=== PATIENT | female | born 1950 | race Asian ===

== ENCOUNTER 2018-03-11 10:55 | Emergency (ER) | payer MEDICAID, OTHER ==
[~2018-03-11] VITALS: Ht 157.5 cm; Wt 50.7 kg
[2018-03-11 10:58] VITALS: BP 162/79; PULSE 105; RESP 18; TEMP 97.9; O2SAT 95
--- NOTE | 2018-03-11 11:36 | PD ---
HPI Chief Complaint: Respiratory Symptoms Time Seen by Provider: 11:12 Travel History International Travel<30 days: No Contact w/Intl Traveler<30days: No Traveled to known affect area: No History of Present Illness HPI 67yo F with PMH of ovarian cancer s/p hysterectomy and chemotherapy 3 years ago , DM presents to the ED with c/o sob for 3 days. Said she has been getting ascites and has been getting it drain every few months. Last paracentesis is in [facility]. Pt is from the [facility] and came here 1 month ago. Denies any fever, cough, chest pain, n/v, abdominal pain, focal weakness or numbness. Said she does not feel abdominal pain but does feel pressure. States her sob feels like what happens when her abdomen becomes distended. PFSH Past Medical History Heart Rhythm Problems: Yes (arrhythmia) Chemotherapy: Yes (R/T OVARIAN CA) Chest Pain: Yes Diabetes: Yes Patient Takes Glucophage: Yes Respiratory: Yes Influenza Vaccination: Yes ?: Not Past Surgical History Hysterectomy: Yes (2012) Social History Alcohol Use: No Tobacco Use: No Substance Use: No Allergies-Medications (Allergen,Severity, Reaction): Coded Allergies: No Known Allergies (Unverified , 03/11/18) Reported Meds & Prescriptions Reported Meds & Active Scripts Active Reported [trimetazidine] 35 Mg PO BID Multi Vitamin Daily (Multiple Vitamin) 1 Tab Tab Glipizide 10 Mg Tab 10 Mg PO BIDAC Take 30 minutes before a meal Furosemide 20 Mg Tab 20 Mg PO TUFR Review of Systems Except as stated in HPI: all other systems reviewed are Neg Physical Exam Narrative GENERAL: 67yo F not in distress. SKIN: Focused skin assessment warm/dry. HEAD: Atraumatic. Normocephalic. EYES: Pupils equal and round. No scleral icterus. No injection or drainage. ENT: No nasal bleeding or discharge. Mucous membranes pink and moist. NECK: Trachea midline. No JVD. CARDIOVASCULAR: Regular rate and rhythm. No murmur appreciated. RESPIRATORY: No accessory muscle use. Clear to auscultation. Breath sounds equal bilaterally. GASTROINTESTINAL: Abdomen softly distended. Non tender to palpation. No rebound tenderness or guarding. MUSCULOSKELETAL: No obvious deformities. No clubbing. No cyanosis. No edema. NEUROLOGICAL: Awake and alert. No obvious cranial nerve deficits. Motor grossly within normal limits. Normal speech. PSYCHIATRIC: Appropriate mood and affect; insight and judgment normal. Data Data Last Documented VS Vital Signs Date Time Temp Pulse Resp B/P (MAP) Pulse Ox O2 Delivery O2 Flow Rate FiO2 03/11/18 20:15 97.9 88 16 145/71 (95) 96 03/11/18 19:45 Room Air Orders Orders Complete Blood Count With Diff (03/11/18 11:30) Basic Metabolic Panel (Bmp) (03/11/18 11:30) B-Type Natriuretic Peptide (03/11/18 11:30) Act Partial Throm Time (Ptt) (03/11/18 11:30) Prothrombin Time / Inr (Pt) (03/11/18 11:30) Troponin I (03/11/18 11:30) Electrocardiogram (03/11/18 11:30) Chest, Single Ap (03/11/18 11:30) Us Guided Abd Paracentesis (03/11/18 ) Ed Discharge Order (03/11/18 20:12) Labs Laboratory Tests Test 03/11/18 11:40 03/11/18 12:19 03/11/18 13:43 B-Type Natriuretic Peptide 14 PG/ML White Blood Count 5.2 TH/MM3 Red Blood Count 3.80 MIL/MM3 Hemoglobin 10.9 GM/DL Hematocrit 33.2 % Mean Corpuscular Volume 87.3 FL Mean Corpuscular Hemoglobin 28.6 PG Mean Corpuscular Hemoglobin Concent 32.8 % Red Cell Distribution Width 14.4 % Platelet Count 279 TH/MM3 Mean Platelet Volume 7.8 FL Neutrophils (%) (Auto) 60.9 % Lymphocytes (%) (Auto) 26.2 % Monocytes (%) (Auto) 9.8 % Eosinophils (%) (Auto) 1.8 % Basophils (%) (Auto) 1.3 % Neutrophils # (Auto) 3.1 TH/MM3 Lymphocytes # (Auto) 1.4 TH/MM3 Monocytes # (Auto) 0.5 TH/MM3 Eosinophils # (Auto) 0.1 TH/MM3 Basophils # (Auto) 0.1 TH/MM3 CBC Comment DIFF FINAL Differential Comment Prothrombin Time 10.0 SEC Prothromb Time International Ratio 1.0 RATIO Activated Partial Thromboplast Time 24.8 SEC Blood Urea Nitrogen 9 MG/DL Creatinine 0.88 MG/DL Random Glucose 266 MG/DL Calcium Level 8.6 MG/DL Sodium Level 136 MEQ/L Potassium Level 4.0 MEQ/L Chloride Level 97 MEQ/L Carbon Dioxide Level 34.9 MEQ/L Anion Gap 4 MEQ/L Estimat Glomerular Filtration Rate 64 ML/MIN Troponin I LESS THAN 0.02 NG/ML MDM Medical Decision Making Medical Screen Exam Complete: Yes Emergency Medical Condition: Yes Interpretation(s) EKG: NSR 98bpm. Normal axis. No ST segment elevation or depression. Differential Diagnosis SOB secondary to abdominal distension from ascites vs. pneumonia vs. CHF vs. pleural effusion vs. ACS Narrative Course 67yo F here with c/o sob for 3 days. Pt is well appearing and saturated at 98% on RA. Pt does have a distended abdomen but it is soft and nontender. Labs reviewed, no leukocytosis. H/H 10.9/33.2, no prior to compare. Platelet normal. Troponin negative. BNP normal. Coagulations normal. CXR negative. Pt is well appearing but does not have outpatient resources since she is here from [facility]. Ordered US guided therapeutic paracentesis for IR. Pt went to US guided paracentesis by IR. Pt instructed to obtain primary care physician since she is now going to be staying here. Diagnosis Primary Impression: Ascites Qualified Codes: R18.8 - Other ascites Patient Instructions: General Instructions Departure Forms: Tests/Procedures Additional Instructions: Please follow up with your primary care physician in 2-3 days. Return to the ED if symptoms worsen. Med/Other Pt SpecificInfo: No Change to Meds Disposition: 01 DISCHARGE HOME Condition: Stable Marcelle Pulido DO March 11, 2018 11:36
[2018-03-11] MEDS ORDERED: FURO20TA PO (11:39)
[2018-03-11] MEDS ORDERED: MULT1TAB46 (11:39)
[2018-03-11] MEDS ORDERED: trimetazidine PO (11:39)
[2018-03-11] MEDS ORDERED: GLIP10TA6 PO (11:39)
--- NOTE | 2018-03-11 12:00 | RADRPT ---
EXAM DATE: 03/11/2018 11:55 AM EDT AGE/SEX: 67 years / Female INDICATIONS: Shortness of breath and upper abdominal discomfort. CLINICAL DATA: This is the patient's initial encounter. Patient reports that signs and symptoms have been present for 3 days and indicates a pain score of 4/10. MEDICAL/SURGICAL HISTORY: Hypertension. None. COMPARISON: No prior [facility] exams available for comparison. FINDINGS: A single AP view of the chest demonstrates the lungs to be symmetrically aerated without evidence of mass, infiltrate or effusion. The cardiomediastinal contours are unremarkable. Osseous structures a re intact. CONCLUSION: No acute pulmonary infiltrates. Electronically signed by: Amanuel Newton MD 03/11/2018 11:58 AM EDT
[2018-03-11 12:46] LABS: AUTOMATED NEUTROPHIL # 3.1 TH/MM3 (1.8-7.7); BASOPHIL # 0.1 TH/MM3 (0-0.2); BASOPHIL % 1.3 % (0.0-2.0); EOSINOPHIL # 0.1 TH/MM3 (0-0.4); EOSINOPHIL % 1.8 % (0.0-4.0); HEMATOCRIT 33.2 % (35.0-46.0); HEMOGLOBIN 10.9 GM/DL (11.6-15.3); LYMPH % 26.2 % (9.0-44.0); LYMPHOCYTE # 1.4 TH/MM3 (1.0-4.8); MEAN CELL VOLUME 87.3 FL (80.0-100.0); MEAN CORPUSCULAR HEMOGLOBIN 28.6 PG (27.0-34.0); MEAN CORPUSCULAR HGB CONC 32.8 % (32.0-36.0); MEAN PLATELET VOLUME 7.8 FL (7.0-11.0); MONO % 9.8 % (0.0-8.0); MONOCYTE # 0.5 TH/MM3 (0-0.9); NEUT % 60.9 % (16.0-70.0); PLATELET COUNT 279 TH/MM3 (150-450); RED CELL DISTRIBUTION WIDTH 14.4 % (11.6-17.2); WHITE BLOOD COUNT 5.2 TH/MM3 (4.0-11.0)
[2018-03-11 13:06] LABS: TROPONIN I LESS THAN 0.02 NG/ML (0.02-0.05)
[2018-03-11 14:37] LABS: BICARBONATE 34.9 MEQ/L (21.0-32.0); BLOOD UREA NITROGEN 9 MG/DL (7-18); CALCIUM 8.6 MG/DL (8.5-10.1); CHLORIDE 97 MEQ/L (98-107); CREATININE 0.88 MG/DL (0.50-1.00); GLOMERULAR FILTRATION RATE 64 ML/MIN (>89); GLUCOSE,RANDOM 266 MG/DL (74-106); SODIUM (NA) 136 MEQ/L (136-145)
[2018-03-11 19:35] VITALS: BP 144/68; PULSE 86; RESP 15; TEMP 98.2; O2SAT 96
[2018-03-11 19:45] VITALS: BP 145/72; PULSE 91; RESP 14; O2SAT 96
[2018-03-11 20:15] VITALS: BP 145/71; TEMP 97.9
--- NOTE | 2018-03-12 12:48 | EKG ---
Date Performed: 03/11/2018 Time Performed: 11:54:43 PTAGE: 67 years EKG: Sinus rhythm NONSPECIFIC T-WAVE ABNORMALITY BORDERLINE ECG NO PREVIOUS TRACING DOCTOR: Arthur Villela Interpretating Date/Time 03/12/2018 12:46:50
[2018-03-12] MEDS ORDERED: LIDOCAINE HCL 1% PF 30 ML VIAL ONE (17:13)
--- NOTE | 2018-03-17 17:51 | RADRPT ---
EXAM DATE: 03/11/2018 7:13 PM EDT AGE/SEX: 67 years / Female INDICATIONS: Ascites. CLINICAL DATA: This is the patient's initial encounter. Patient reports that signs and symptoms have been present for 2 months and indicates a pain score of 2/10. MEDICAL/SURGICAL HISTORY: Carcinoma, ovarian. Arrhythmia. Diabetes. Hysterectomy. Chemotherap y. COMPARISON: No prior exams available for comparison. No external comparison. FLUID: Total volume of 6,100 cc of . blood tinged fluid was removed. Fluid was discarded. Paracentesis was t herapeutic only. . . TECHNIQUE: Ultrasound guidance for abdominal paracentesis. Paracentesis. The risks, benefits, and alternatives to ultrasound guided paracentesis were explained to the patient in detail including the risk of bleeding and infection. Written and verbal informed consent was obt ained. With the patient on the ultrasound table, ultrasound imaging was used to select the most appropriate approach for paracentesis. Overlying skin was prepped and draped in the usual sterile fashion and wi th a local anesthetic, a dermatotomy was made with an 11 blade scalpel. A 6 [place] [id number] ca theter was introduced into the peritoneal cavity and fluid was collected. Post procedure scanning reveals no hematoma or other complication. The patient tolerated the procedu re well and left the ultrasound suite in stable condition. CONCLUSION: 1. Uncomplicated paracentesis. Electronically signed by: Levar Ji MD 03/17/2018 5:50 PM EDT
== END 2018-03-11 20:25 | disposition home or self-care (01) ==
LOC: NEPC 10:55
DX: R18.8 Other ascites (principal); E11.9 Type 2 diabetes mellitus without complications; Z79.84 Long term (current) use of oral hypoglycemic drugs; Z85.43 Personal history of malignant neoplasm of ovary
CPT/HCPCS: 49083; 71045; 80048; 83880; 84484; 85025; 85610; 85730; 93005; 99285; C1729

== ENCOUNTER 2018-04-04 08:53 | Inpatient (IN) | payer MEDICAID ==
[~2018-04-04] VITALS: Ht 157.5 cm; Wt 50.1 kg
[2018-04-04] VITALS (7 sets, daily range): BP systolic 100–166; BP diastolic 45–73; PULSE 78–108; RESP 16–20; TEMP 97.8–99.1; O2SAT 95–100
[~2018-04-04 08:53] MED LIST: FURO20TA PO; GLIP10TA6 PO; MULT1TAB46; trimetazidine PO
--- NOTE | 2018-04-04 10:00 | PD ---
HPI Chief Complaint: GI Complaint Time Seen by Provider: 09:30 Travel History International Travel<30 days: No Contact w/Intl Traveler<30days: No Traveled to known affect area: No History of Present Illness HPI The patient was seen and examined in the presence of the nurse. This patient moved here from the [facility] recently. She has history of ovarian cancer. She got some chemotherapy in the [facility] but it does not sound like she ever followed up to determine the result of that. She has recurrent abdominal ascites and needs recurrent paracentesis. She was seen here in the ER 3 weeks ago and got paracentesis. She returns with the same issue. She is got abdominal bloating at times it makes her short of breath. He has no chest pain or productive cough or fever or presyncopal symptoms. Symptom severity is moderate. No alleviating factors. Symptoms exacerbated by recurrent ascites. PFSH Past Medical History Heart Rhythm Problems: Yes (arrhythmia) Cardiovascular Problems: Yes Chemotherapy: Yes (R/T OVARIAN CA) Chest Pain: Yes Diabetes: Yes Respiratory: Yes Past Surgical History Hysterectomy: Yes (2012) Social History Alcohol Use: No Tobacco Use: No Substance Use: No Allergies-Medications (Allergen,Severity, Reaction): Coded Allergies: No Known Allergies (Unverified , 03/11/18) Reported Meds & Prescriptions Reported Meds & Active Scripts Active Reported [trimetazidine] 35 Mg PO BID Multi Vitamin Daily (Multiple Vitamin) 1 Tab Tab Glipizide 10 Mg Tab 10 Mg PO BIDAC Take 30 minutes before a meal Furosemide 20 Mg Tab 20 Mg PO TUFR Review of Systems General / Constitutional: No: Fever Eyes: No: Visual changes HENT: No: Headaches Cardiovascular: No: Chest Pain or Discomfort Respiratory: Positive: Shortness of Breath Gastrointestinal: Positive: Vomiting Genitourinary: No: Dysuria Musculoskeletal: No: Pain Skin: No Rash Neurologic: No: Weakness Psychiatric: No: Depression Endocrine: No: Polydipsia Hematologic/Lymphatic: No: Easy Bruising Physical Exam Narrative GENERAL: Well-nourished, well-developed patient in no apparent distress. SKIN: Focused skin assessment reveals no rash and nodules. Skin is Warm and dry. HEAD: Atraumatic. Normocephalic. EYES: Pupils equal and round. No scleral icterus. No injection or drainage. ENT: No nasal bleeding or discharge. Mucous membranes pink and moist. NECK: Trachea midline. No JVD. CARDIOVASCULAR: Regular rate and rhythm. No murmur appreciated. RESPIRATORY: No accessory muscle use. Clear to auscultation. Breath sounds equal bilaterally. GASTROINTESTINAL: Abdomen soft, non-tender, mild distention consistent with ascites. No tenseness. Hepatic and splenic margins not palpable. MUSCULOSKELETAL: No obvious deformities. No clubbing. No cyanosis. No edema. NEUROLOGICAL: Awake and alert. No obvious cranial nerve deficits. Motor grossly within normal limits. Normal speech. PSYCHIATRIC: Appropriate mood and affect; insight and judgment normal. Data Data Last Documented VS Vital Signs Date Time Temp Pulse Resp B/P (MAP) Pulse Ox O2 Delivery O2 Flow Rate FiO2 04/04/18 12:57 100 17 160/66 (97) 100 Room Air 04/04/18 09:02 97.8 Orders Orders Complete Blood Count With Diff (04/04/18 09:41) Prothrombin Time / Inr (Pt) (04/04/18 09:41) Act Partial Throm Time (Ptt) (04/04/18 09:41) Comprehensive Metabolic Panel (04/04/18 09:41) Chest, Single Ap (04/04/18 ) Iv Access Insert/Monitor (04/04/18 09:41) Ct Thorax/ Chest W Iv Contrast (04/04/18 ) Ct Abd/Pel W Iv Contrast(Rout) (04/04/18 ) Iohexol 350 Inj (Omnipaque 350 Inj) (04/04/18 11:40) Labs Laboratory Tests Test 04/04/18 09:45 White Blood Count 6.3 TH/MM3 Red Blood Count 4.48 MIL/MM3 Hemoglobin 12.3 GM/DL Hematocrit 38.1 % Mean Corpuscular Volume 85.0 FL Mean Corpuscular Hemoglobin 27.4 PG Mean Corpuscular Hemoglobin Concent 32.3 % Red Cell Distribution Width 14.9 % Platelet Count 489 TH/MM3 Mean Platelet Volume 7.8 FL Neutrophils (%) (Auto) 72.2 % Lymphocytes (%) (Auto) 18.2 % Monocytes (%) (Auto) 8.1 % Eosinophils (%) (Auto) 0.5 % Basophils (%) (Auto) 1.0 % Neutrophils # (Auto) 4.5 TH/MM3 Lymphocytes # (Auto) 1.1 TH/MM3 Monocytes # (Auto) 0.5 TH/MM3 Eosinophils # (Auto) 0.0 TH/MM3 Basophils # (Auto) 0.1 TH/MM3 CBC Comment DIFF FINAL Differential Comment Prothrombin Time 9.8 SEC Prothromb Time International Ratio 1.0 RATIO Activated Partial Thromboplast Time 25.0 SEC Blood Urea Nitrogen 11 MG/DL Creatinine 0.74 MG/DL Random Glucose 166 MG/DL Total Protein 8.4 GM/DL Albumin 2.7 GM/DL Calcium Level 9.1 MG/DL Alkaline Phosphatase 155 U/L Aspartate Amino Transf (AST/SGOT) 26 U/L Alanine Aminotransferase (ALT/SGPT) 18 U/L Total Bilirubin 0.4 MG/DL Sodium Level 135 MEQ/L Potassium Level 3.5 MEQ/L Chloride Level 94 MEQ/L Carbon Dioxide Level 30.3 MEQ/L Anion Gap 11 MEQ/L Estimat Glomerular Filtration Rate 78 ML/MIN MDM Medical Decision Making Medical Screen Exam Complete: Yes Emergency Medical Condition: Yes Medical Record Reviewed: Yes Differential Diagnosis Ovarian cancer, recurrent ascites, anasarca Narrative Course I have reviewed the patient's electronic medical record. Reviewed her visit from 3 weeks ago Since her last visit the patient has established with and seen a primary physician in [place] IV placed and labs sent I reviewed her chest x-ray which shows possible mass lesion and CT recommended Lab studies are reviewed CT of chest abdomen and pelvis was done for detailed evaluation. She has massive ascites compressing her distal esophagus causing food to build up She has omental caking and calcified pelvic spread She has suspected spread to mediastinal nodes Patient is new to the area getting no oncology evaluation She will require hospitalization given the extent of the ascites causing esophageal compression I reviewed with the hospitalist will admit Diagnosis Primary Impression: Ascites, malignant Additional Impressions: Acute obstruction of esophagus Ovarian malignant neoplasm Qualified Codes: C56.9 - Malignant neoplasm of unspecified ovary Admitting Information Admitting Physician Requests: it David Villanueva MD Apr 04, 2018 10:00
[2018-04-04 10:12] LABS: AUTOMATED NEUTROPHIL # 4.5 TH/MM3 (1.8-7.7); BASOPHIL # 0.1 TH/MM3 (0-0.2); EOSINOPHIL % 0.5 % (0.0-4.0); HEMATOCRIT 38.1 % (35.0-46.0); HEMOGLOBIN 12.3 GM/DL (11.6-15.3); LYMPH % 18.2 % (9.0-44.0); LYMPHOCYTE # 1.1 TH/MM3 (1.0-4.8); MEAN CORPUSCULAR HEMOGLOBIN 27.4 PG (27.0-34.0); MEAN CORPUSCULAR HGB CONC 32.3 % (32.0-36.0); MEAN PLATELET VOLUME 7.8 FL (7.0-11.0); MONO % 8.1 % (0.0-8.0); MONOCYTE # 0.5 TH/MM3 (0-0.9); NEUT % 72.2 % (16.0-70.0); PLATELET COUNT 489 TH/MM3 (150-450); RED BLOOD COUNT 4.48 MIL/MM3 (4.00-5.30); RED CELL DISTRIBUTION WIDTH 14.9 % (11.6-17.2); WHITE BLOOD COUNT 6.3 TH/MM3 (4.0-11.0)
[2018-04-04 10:18] LABS: PROTHROMBIN TIME - PATIENT 9.8 SEC (9.8-11.6)
--- NOTE | 2018-04-04 10:22 | RADRPT ---
EXAM DATE: 04/04/2018 10:15 AM EDT AGE/SEX: 67 years / Female INDICATIONS: Short of breath, lower chest/ upper abdomen pain. CLINICAL DATA: This is the patient's initial encounter. Patient reports that signs and symptoms have been present for 1 week and indicates a pain score of 8/10. MEDICAL/SURGICAL HISTORY: . arrhythmia. None. COMPARISON: [facility] [place], CHEST SINGLE AP, 03/11/2018. . FINDINGS: Portable AP view of the chest demonstrates a normal size cardiac silhouette. There is a suspected mas slike opacity overlying the heart and left lower lung zone. Based on the appearance is likely retroca rdiac. An EKG lead overlies this area of the chest. No pleural effusion or pneumothorax is identified . The bones and soft tissues demonstrate no acute abnormality otherwise. CONCLUSION: There is a retrocardiac appearing opacity/mass that appears different than on the a prior examination . EKG lead overlies this area partially obscuring this finding. A hiatal hernia could have this appea ronal but I cannot exclude a mediastinal or lung mass given the appearance. Suggest chest CT for furt her evaluation. Electronically signed by: Greg Barba MD 04/04/2018 10:20 AM EDT
[2018-04-04 10:40] LABS: ALBUMIN 2.7 GM/DL (3.4-5.0); ALT (GPT) 18 U/L (10-53); AST (GOT) 26 U/L (15-37); BICARBONATE 30.3 MEQ/L (21.0-32.0); BLOOD UREA NITROGEN 11 MG/DL (7-18); CALCIUM 9.1 MG/DL (8.5-10.1); CHLORIDE 94 MEQ/L (98-107); CREATININE 0.74 MG/DL (0.50-1.00); GLOMERULAR FILTRATION RATE 78 ML/MIN (>89); GLUCOSE,RANDOM 166 MG/DL (74-106); SODIUM (NA) 135 MEQ/L (136-145)
[2018-04-04 10:43] LABS: ALKALINE PHOSPHATASE 155 U/L (45-117); TOTAL BILIRUBIN ADULT 0.4 MG/DL (0.2-1.0); TOTAL PROTEIN 8.4 GM/DL (6.4-8.2)
[2018-04-04] MEDS ORDERED: IOHEXOL 350 MG/ML 10 ML VIAL (for RAD DIAG) IVCONTRAST ONE (11:40)
--- NOTE | 2018-04-04 12:08 | RADRPT ---
EXAM DATE: 04/04/2018 11:41 AM EDT AGE/SEX: 67 years / Female INDICATIONS: Abdomen pressure with difficulty swallowing. CLINICAL DATA: This is the patient's initial encounter. Patient reports that signs and symptoms have been present for 1 day and indicates a pain score of 2/10. MEDICAL/SURGICAL HISTORY: Carcinoma, ovarian. Diabetes. Hysterectomy. RADIATION DOSE: 5.1 CTDI (mGy) ; Combined studies COMPARISON: [facility] [place], CT ABDOMEN & PELVIS W CONTRAST, 04/04/2018. . TECHNIQUE: Multiple contiguous axial images were obtained through the chest during bolus infusion of 96 ml Omnipaque 350 (iohexol) nonionic water-soluble contrast as a cumulative dose for multiple exa ms. Images were obtained in suspended respiration using multiple row detector helical technique. U sing automated exposure control and adjustment of the mA and/or kV according to patient size, radiati on dose was kept as low as reasonably achievable to obtain optimal diagnostic quality images. DICOM format image data is available electronically for review and comparison. FINDINGS: Lungs: No consolidation or pneumothorax. There is architectural distortion with tubular/linear high density structure in the right upper lobe measuring approximately 2.3 x 0.9 cm. There is adjacent br onchiectasis. Mild nodularity is present in the right upper lobe on image 10 measuring up to 5 mm. In the right middle lobe there is mild bronchiectasis and nodularity. Compressive atelectasis is presen t in the left lower lobe adjacent to the large hiatal hernia and posterior mediastinal fluid. Mediastinum: The heart and great vessels demonstrate no acute abnormality. There are enlarged media stinal lymph nodes with a 12 x 10 mm right paratracheal lymph node and a 1.8 x 1.7 cm precarinal lymp h node. Coronary artery calcification is present. There is a large hiatal hernia extending into the p osterior mediastinum with posterior mediastinal fluid extending from the abdomen. The esophagus is di lated and contains a fluid and material. Pleurae: No pleural effusion or pleural thickening. Axillae: No lymphadenopathy. Musculoskeletal: The bones and soft tissues demonstrate no acute abnormality. Other: Please refer to abdomen and pelvis CT report for description of the subdiaphragmatic findings . CONCLUSION: 1. There is a large hiatal hernia with fluid in the posterior mediastinum that has extended from the peritoneal cavity. The hiatal hernia and fluid presumably are related to the dilated esophagus conta ining fluid material. Suspect there is likely some degree of external compression on the distal esoph esha near the GE junction from the hernia and fluid. 2. The lungs demonstrated architectural distortion in the right upper lobe with bronchiectasis. Ther e is also mild bronchiectasis and nodularity in the right middle lobe. The appearance favors a chroni c infectious or inflammatory process but consider attention to this at follow-up imaging. 3. There is mediastinal lymphadenopathy, highly suspicious for metastatic disease related to the pat ient's ovarian cancer. 4. Please refer to abdomen and pelvis CT report for description of the subdiaphragmatic findings. Electronically signed by: Greg Barba MD 04/04/2018 12:07 PM EDT
--- NOTE | 2018-04-04 12:09 | RADRPT ---
EXAM DATE: 04/04/2018 11:41 AM EDT AGE/SEX: 67 years / Female INDICATIONS: Abdomen pressure with difficulty swallowing. CLINICAL DATA: This is the patient's initial encounter. Patient reports that signs and symptoms have been present for 1 day and indicates a pain score of 2/10. MEDICAL/SURGICAL HISTORY: Carcinoma, ovarian. Hysterectomy. ORAL CONTRAST: No oral contrast ingested. RADIATION DOSE: 5.1 CTDI (mGy) ; Combined studies COMPARISON: No prior exams available for comparison. TECHNIQUE: Multiple contiguous axial images were obtained through the abdomen and pelvis following b olus infusion of 96 ml Omnipaque 350 (iohexol) nonionic water-soluble contrast as a cumulative dose for multiple exams. No oral contrast ingested. Using automated exposure control and adjustment of t he mA and/or kV according to patient size, radiation dose was kept as low as reasonably achievable to obtain optimal diagnostic quality images. DICOM format image data is available electronically for r eview and comparison. FINDINGS: Lower Lungs: The visualized lower lungs are clear. Coronary artery calcifications are present. Liver: The liver has a homogeneous density without space-occupying lesion. There is no dilation of th e biliary tree. Spleen: Homogeneous density without enlargement. Pancreas: Unremarkable without mass or calcification. Kidneys: Normal in size and shape. No evidence of mass or hydronephrosis. Adrenal Glands: Unremarkable. Aorta: The aorta and proximal iliac vessels are grossly unremarkable without aneurysmal dilation. Bowel/Mesentery: There is evidence of a hiatal hernia with apparent food in the distal esophagus. Th e distal esophagus is surrounded by pockets of ascitic fluid and may be narrowed distally. There is m assive amounts of ascitic fluid throughout the abdomen and pelvis. There is abnormal enhancement and mild nodularity along the peritoneum consistent with metastatic disease. There are apparent calcified mesenteric masses along the anterior and inferior pelvis. Abdominal Wall: Intact. Retroperitoneum: No evidence of adenopathy in the retrocrural, para-aortic, or deep pelvic regions. Bladder: Not well visualized or evaluated due to the surrounding ascitic fluid and calcified mesente stormy metastases. Bladder appears decompressed. Reproductive Organs: No abnormal masses or calcifications seen. Inguinal: The inguinal region is unremarkable without evidence of adenopathy. Bony Structures: Osteopenia and degenerative change with no distinct destructive or lytic lesion. CONCLUSION: 1. Massive ascitic fluid with apparent calcified peritoneal metastases along the anterior and inferi or pelvis. There are additional omental metastasis. 2. Evidence of a hiatal hernia with apparent food in the distal esophagus. The distal esophagus is s urrounded by pockets of ascitic fluid and may be narrowed distally. Electronically signed by: Mario Aponte MD 04/04/2018 12:08 PM EDT
[2018-04-04] MEDS ORDERED: MAGNESIUM HYDROXIDE SUSP 30 ML CUP PO PRN (13:30)
[2018-04-04] MEDS ORDERED: LACTULOSE SYRUP 20 GM/30 ML CUP PO PRN (13:30)
[2018-04-04] MEDS ORDERED: BISACODYL 10 MG SUPP RECTAL PRN (13:30)
[2018-04-04] MEDS ORDERED: ONDANSETRON ODT 4 MG TAB SL PRN (13:30)
[2018-04-04] MEDS ORDERED: SENNOSIDES 8.6 MG TAB PO PRN (13:30)
[2018-04-04] MEDS ORDERED: NALOXONE HCL 0.4 MG/ML AMP IV PUSH PRN (13:30)
[2018-04-04] MEDS ORDERED: SODIUM CHLORIDE 0.9% FLUSH 10 ML FLUSH IV FLUSH PRN (13:30)
--- NOTE | 2018-04-04 13:34 | HHI.HP ---
[facility] No Primary Care Physician Admission Diagnosis malignant ascites, esophageal obstruction,ovarian cancer Diagnoses: Chief Complaint: Abdominal pain. Poor appetite Travel History International Travel<30 Days: No Contact w/Intl Traveler <30 Da: No Traveled to Known Affected Are: No History of Present Illness 67-year-old female with a reported history of ovarian cancer who has previously been living in the [facility] presented to the emergency room with recurrent abdominal pain and ascites. The patient was seen with her daughter at bedside who served as an patternmaker metal bench per the patient's request. Apparently she was diagnosed with ovarian cancer about 4 years ago in the [facility]. She underwent total hysterectomy and received 6 doses of chemotherapy treatment. However she continues to have recurrent ascites requiring frequent paracentesis. She is here visiting her family but she continues to decline with persistent ascites, very poor appetite and overall decline. She was seen here in the emergency room about 3 weeks ago and underwent therapeutic paracentesis. The fluid reaccumulated again with associated abdominal pain. She has not been able to establish with an oncologist here. Review of Systems Constitutional: COMPLAINS OF: Weight loss, Change in appetite, DENIES: Fever Gastrointestinal: COMPLAINS OF: Abdominal pain, Nausea Past Family Social History Past Medical History Ovarian cancer Diabetes Hypertension ? Abnormal heart rhythm. Past Surgical History Total hysterectomy Reported Medications Reported Meds & Active Scripts Active Reported [trimetazidine] 35 Mg PO BID Multi Vitamin Daily (Multiple Vitamin) 1 Tab Tab Glipizide 10 Mg Tab 10 Mg PO BIDAC Take 30 minutes before a meal Furosemide 20 Mg Tab 20 Mg PO TUFR Allergies: Coded Allergies: No Known Allergies (Unverified , 03/11/18) Family History No immediate family history of cancer. Social History Never used tobacco, alcohol, or illicit drugs. Physical Exam Vital Signs Vital Signs Date Time Temp Pulse Resp B/P (MAP) Pulse Ox O2 Delivery O2 Flow Rate FiO2 04/04/18 12:57 100 17 160/66 (97) 100 Room Air 04/04/18 09:52 18 04/04/18 09:02 97.8 108 20 166/71 (102) 97 Physical Exam GENERAL: Cachectic appearing female. SKIN: No rashes, ecchymoses or lesions. Cool and dry. HEAD: Atraumatic. Normocephalic. No temporal or scalp tenderness. EYES: Pupils equal round and reactive. Extraocular motions intact. No scleral icterus. No injection or drainage. ENT: Nose without bleeding, purulent drainage or septal hematoma. Throat without erythema, tonsillar hypertrophy or exudate. Uvula midline. Airway patent. NECK: Trachea midline. No JVD or lymphadenopathy. Supple, nontender, no meningeal signs. CARDIOVASCULAR: Normal rate but rhythm is irregular. No significant murmur. RESPIRATORY: Diminished breath sounds at the bases bilaterally otherwise clear to auscultation. GASTROINTESTINAL: Abdomen is markedly distended, tender to palpation, apparent large ascites. MUSCULOSKELETAL: Extremities without clubbing, cyanosis, or edema. NEUROLOGICAL: Awake and alert. Cranial nerves II through XII intact. Motor and sensory grossly within normal limits. Five out of 5 muscle strength in all muscle groups. Normal speech. Laboratory Laboratory Tests Test 04/04/18 09:45 White Blood Count 6.3 Red Blood Count 4.48 Hemoglobin 12.3 Hematocrit 38.1 Mean Corpuscular Volume 85.0 Mean Corpuscular Hemoglobin 27.4 Mean Corpuscular Hemoglobin Concent 32.3 Red Cell Distribution Width 14.9 Platelet Count 489 Mean Platelet Volume 7.8 Neutrophils (%) (Auto) 72.2 Lymphocytes (%) (Auto) 18.2 Monocytes (%) (Auto) 8.1 Eosinophils (%) (Auto) 0.5 Basophils (%) (Auto) 1.0 Neutrophils # (Auto) 4.5 Lymphocytes # (Auto) 1.1 Monocytes # (Auto) 0.5 Eosinophils # (Auto) 0.0 Basophils # (Auto) 0.1 CBC Comment DIFF FINAL Differential Comment Prothrombin Time 9.8 Prothromb Time International Ratio 1.0 Activated Partial Thromboplast Time 25.0 Blood Urea Nitrogen 11 Creatinine 0.74 Random Glucose 166 Total Protein 8.4 Albumin 2.7 Calcium Level 9.1 Alkaline Phosphatase 155 Aspartate Amino Transf (AST/SGOT) 26 Alanine Aminotransferase (ALT/SGPT) 18 Total Bilirubin 0.4 Sodium Level 135 Potassium Level 3.5 Chloride Level 94 Carbon Dioxide Level 30.3 Anion Gap 11 Estimat Glomerular Filtration Rate 78 Result Diagram: 04/04/18 0945 04/04/18 0945 Imaging Last Impressions Chest X-Ray 04/04/18 0000 Signed Impressions: CONCLUSION: There is a retrocardiac appearing opacity/mass that appears different than on t he a prior examination. EKG lead overlies this area partially obscuring this fi nding. A hiatal hernia could have this appearance but I cannot exclude a medias tinal or lung mass given the appearance. Suggest chest CT for further evaluatio n. Chest CT 04/04/18 0000 Signed Impressions: CONCLUSION: 1. There is a large hiatal hernia with fluid in the posterior mediastinum that has extended from the peritoneal cavity. The hiatal hernia and fluid presumabl y are related to the dilated esophagus containing fluid material. Suspect there is likely some degree of external compression on the distal esophagus near the GE junction from the hernia and fluid. 2. The lungs demonstrated architectural distortion in the right upper lobe wit h bronchiectasis. There is also mild bronchiectasis and nodularity in the right middle lobe. The appearance favors a chronic infectious or inflammatory proces s but consider attention to this at follow-up imaging. 3. There is mediastinal lymphadenopathy, highly suspicious for metastatic dise ase related to the patient's ovarian cancer. 4. Please refer to abdomen and pelvis CT report for description of the subdiap hragmatic findings. Abdomen/Pelvis CT 04/04/18 0000 Signed Impressions: CONCLUSION: 1. Massive ascitic fluid with apparent calcified peritoneal metastases along t he anterior and inferior pelvis. There are additional omental metastasis. 2. Evidence of a hiatal hernia with apparent food in the distal esophagus. The distal esophagus is surrounded by pockets of ascitic fluid and may be narrowed distally. Caprini VTE Risk Assessment Caprini VTE Risk Assessment: Mod/High Risk (score >= 2) Caprini Risk Assessment Model Point Value = 1 Point Value = 2 Point Value = 3 Point Value = 5 Age 41-60 Minor surgery BMI > 25 kg/m2 Swollen legs Varicose veins or History of unexplained or recurrent spontaneous Oral contraceptives or hormone replacement Sepsis (< 1 month) Serious lung disease, including pneumonia (< 1 month) Abnormal pulmonary function Acute myocardial infarction Congestive heart failure (< 1 month) History of inflammatory bowel disease Medical patient at bed rest Age 61-74 Arthroscopic surgery Major open surgery (> 45 min) Laparoscopic surgery (> 45 min) Malignancy Confined to bed (> 72 hours) Immobilizing plaster cast Central venous access Age >= 75 History of VTE Family history of VTE Factor V Leiden Prothrombin [id number] Lupus anticoagulant Anticardiolipin antibodies Elevated serum homocysteine Heparin-induced thrombocytopenia Other congenital or acquired thrombophilia Stroke (< 1 month) Elective arthroplasty Hip, pelvis, or leg fracture Acute spinal cord injury (< 1 month) Prophylaxis Regimen Total Risk Factor Score Risk Level Prophylaxis Regimen 0-1 Low Early ambulation 2 Moderate Order ONE of the following: *Sequential Compression Device (SCD) *Heparin 5000 units SQ BID 3-4 Higher Order ONE of the following medications: *Heparin 5000 units SQ TID *Enoxaparin/Lovenox 40 mg SQ daily (WT < 150 kg, CrCl > 30 mL/min) *Enoxaparin/Lovenox 30 mg SQ daily (WT < 150 kg, CrCl > 10-29 mL/min) *Enoxaparin/Lovenox 30 mg SQ BID (WT < 150 kg, CrCl > 30 mL/min) AND/OR *Sequential Compression Device (SCD) 5 or more Highest Order ONE of the following medications: *Heparin 5000 units SQ TID (Preferred with Epidurals) *Enoxaparin/Lovenox 40 mg SQ daily (WT < 150 kg, CrCl > 30 mL/min) *Enoxaparin/Lovenox 30 mg SQ daily (WT < 150 kg, CrCl > 10-29 mL/min) *Enoxaparin/Lovenox 30 mg SQ BID (WT < 150 kg, CrCl > 30 mL/min) AND *Sequential Compression Device (SCD) Assessment and Plan Problem List: (1) Ovarian malignant neoplasm ICD Code: C56.9 - Malignant neoplasm of unspecified ovary Status: Acute Plan: The patient was previously living in the [facility] where she received chemotherapy treatment about 4 years ago. However she has been having recurrent ascites. This has been getting worse. Abdominal CT shows massive ascitic fluid with apparent calcified peritoneal metastases along the anterior and inferior pelvis. There are additional omental metastasis. There is also mediastinal lymphadenopathy concerning for metastasis. -Order paracentesis. Will also ask for cytology. -Consult [employer] oncology. Appreciate assistance. -Pain control as needed. -I asked the patient's daughter who is an employee here to bring the patient's records from the [facility] (2) Ascites, malignant ICD Code: R18.0 - Malignant ascites Status: Acute Plan: Paracentesis as above. Fluid studies and cytology ordered. (3) Acute obstruction of esophagus ICD Code: K22.2 - Esophageal obstruction Status: Acute Plan: Probably due to large volume ascites. We will see how she does after paracentesis. If she continues to have issues with eating, will get GI to evaluate. (4) Diabetes ICD Code: E11.9 - Type 2 diabetes mellitus without complications Plan: Sliding scale insulin with Accu-Cheks. Oral intake is uncertain at this time. Hold glipizide. (5) Hypertension ICD Code: I10 - Essential (primary) hypertension Plan: Continue Lasix for now. Follow blood pressure. Discussed Condition With Dr. Villanueva Physician Certification 2 Midnight Certification Type: Admission for Inpatient Services Order for Inpatient Services The services are ordered in accordance with Medicare regulations or non- Medicare payer requirements, as applicable. In the case of services not specified as inpatient-only, they are appropriately provided as inpatient services in accordance with the 2-midnight benchmark. Estimated LOS (days): 5 days is the estimated time the patient will need to remain in the hospital, assuming treatment plan goals are met and no additional complications. Post-Hospital Plan: Not yet determined Problem Qualifiers (1) Ovarian malignant neoplasm: Qualified Codes: C56.9 - Malignant neoplasm of unspecified ovary Hung Katz MD Apr 04, 2018 13:33
[2018-04-04] MEDS ORDERED: GLUCAGON 1 MG/ML VIAL OTHER PRN (13:45)
[2018-04-04] MEDS ORDERED: DEXTROSE 50% IN WATER 50 ML VIAL(D50) IV PUSH PRN (13:45)
[2018-04-04] MEDS ORDERED: LIDOCAINE HCL 1% PF 30 ML VIAL ONE (15:50)
--- NOTE | 2018-04-04 16:05 | PD.RAD ---
Post US Procedure Prog Note Pre Procedure Diagnosis: (1) Ovarian malignant neoplasm (2) Ascites, malignant Post Procedure Diagnosis: (1) Ascites, malignant (2) Ovarian malignant neoplasm Procedure Date: Apr 04, 2018 Supervising Radiologist: Greg Barba Estimated blood loss: none. Anesthesia: Local Plan of Activity Patient to Unit: Other Patient Condition: Good See PACS Report for procedural detail/treatment Drainage Procedure Procedure 1 Imaging Guidance: Ultrasound Side: Right Procedure Type: Paracentesis Drainage: Suction Fluid Removal (CCs): 7200 Fluid Description: Clear, Red Plan no complications. return to ED. Greg Barba MD Apr 04, 2018 16:05
--- NOTE | 2018-04-04 16:06 | RADRPT ---
EXAM DATE: 04/04/2018 3:48 PM EDT AGE/SEX: 67 years / Female INDICATIONS: Ascites. CLINICAL DATA: This is the patient's initial encounter. Patient reports that signs and symptoms have been present for 1 day and indicates a pain score of 0/10. MEDICAL/SURGICAL HISTORY: . Diabetic. Ovarian cancer. HTN. Hysterectomy. COMPARISON: [facility], US GUIDED ABD PARACENTESIS, 03/11/2018. . FLUID: Total volume of 7200 cc of clear, red fluid was removed. Fluid was sent to lab for ordered studies. . . TECHNIQUE: Ultrasound guidance for abdominal paracentesis. Paracentesis. The risks, benefits, and alternatives to ultrasound guided paracentesis were explained to the patient in detail including the risk of bleeding and infection. Written and verbal informed consent was obt ained. With the patient on the ultrasound table, ultrasound imaging was used to select the most appropriate approach for paracentesis. Overlying skin was prepped and draped in the usual sterile fashion and wi th a local anesthetic, a dermatotomy was made with an 11 blade scalpel. A 6 [place] [id number] ca theter was introduced into the peritoneal cavity and fluid was collected. The patient tolerated the procedure well and left the ultrasound suite in stable condition. FINDINGS: Post procedure imaging demonstrates complete evacuation of the pleural fluid in the right lower quadr ant. CONCLUSION: Uncomplicated paracentesis with removal of 7.2 L of fluid. Electronically signed by: Greg Barba MD 04/04/2018 4:05 PM EDT
[2018-04-04 16:55] LABS: TOTAL PROTEIN 8.5 GM/DL (6.4-8.2)
[2018-04-04 16:56] LABS: TOTAL PROTEIN,PERITONEAL FLUID 5.8 GM/DL
[2018-04-04] MEDS: INSULIN ASPART SUPPLEMENTAL SCALE SQ SCH ×2 (17:00→20:40)
[2018-04-04 17:31] LABS: PERITONEAL HISTIOCYTES 5 %; PERITONEAL LYMPHS 61 %; PERITONEAL MONOS 26 %; PERITONEAL POLYS(SEGS) 3 %
[2018-04-04 17:32] LABS: PERITONEAL RBC 31588 /MM3 (0-0)
[2018-04-04] MEDS: SODIUM CHLORIDE 0.9% FLUSH 10 ML FLUSH IV FLUSH SCH (20:42)
[2018-04-05] VITALS (7 sets, daily range): BP systolic 102–131; BP diastolic 48–59; PULSE 92–99; RESP 15–18; TEMP 97.3–99.4; O2SAT 92–97
[2018-04-05 07:10] LABS: AUTOMATED NEUTROPHIL # 3.7 TH/MM3 (1.8-7.7); BASOPHIL % 0.8 % (0.0-2.0); EOSINOPHIL # 0.1 TH/MM3 (0-0.4); EOSINOPHIL % 1.3 % (0.0-4.0); HEMATOCRIT 32.5 % (35.0-46.0); HEMOGLOBIN 10.5 GM/DL (11.6-15.3); LYMPH % 21.3 % (9.0-44.0); LYMPHOCYTE # 1.3 TH/MM3 (1.0-4.8); MEAN CELL VOLUME 84.5 FL (80.0-100.0); MEAN CORPUSCULAR HEMOGLOBIN 27.3 PG (27.0-34.0); MEAN CORPUSCULAR HGB CONC 32.3 % (32.0-36.0); MEAN PLATELET VOLUME 7.8 FL (7.0-11.0); MONO % 13.3 % (0.0-8.0); MONOCYTE # 0.8 TH/MM3 (0-0.9); NEUT % 63.3 % (16.0-70.0); PLATELET COUNT 382 TH/MM3 (150-450); RED BLOOD COUNT 3.85 MIL/MM3 (4.00-5.30); RED CELL DISTRIBUTION WIDTH 14.6 % (11.6-17.2); WHITE BLOOD COUNT 5.9 TH/MM3 (4.0-11.0)
--- NOTE | 2018-04-05 07:32 | EKG ---
Date Performed: 04/04/2018 Time Performed: 18:25:33 PTAGE: 67 years EKG: SINUS TACHYCARDIA NONSPECIFIC T-WAVE ABNORMALITY ABNORMAL RHYTHM ECG PREVIOUS TRACING : 03/11/2018 11.54 DOCTOR: Moises Winston Interpretating Date/Time 04/05/2018 07:29:36
[2018-04-05 07:54] LABS: BICARBONATE 31.5 MEQ/L (21.0-32.0); CALCIUM 7.8 MG/DL (8.5-10.1); CREATININE 0.47 MG/DL (0.50-1.00)
[2018-04-05] MEDS: INSULIN ASPART SUPPLEMENTAL SCALE SQ SCH ×4 (08:00→21:00)
--- NOTE | 2018-04-05 09:10 | PD.CONS ---
History of Present Illness Service storekeeper helper/onc Consult Requested By Dr. Katz Reason for Consult PMH: ovarian cancer ascites Primary Care Physician No Primary Care Physician Diagnoses: (1) Ovarian malignant neoplasm History of Present Illness This is a 67 year old female who presented to [facility] for evaluation of ascites. She has a PMH of ovarian cancer treated in the [facility] about 4 years ago. Patient does not speak much Upper Sorbian so I spoke with her daughter on the phone. Her daughter reports that she was getting ascites drained in the [facility] but since she arrived [facility] the [facility] a month ago it seems that the ascites is building up quicker, she was in ER about 3 weeks ago and had ascites drained. Overall patient states she feels much better after the paracentesis. I explained to her daughter that cytology is still pending but the imaging shows implants that is consistent with recurrent disease. If she was interesting in treatment, Dr. Almaraz would most likely give Taxol and Carboplatin. Her daughter confirmed that Ms. Christianson got 6 cycles of chemotherapy after her diagnosis and asked how many treatment she would need? I explained that at least 6-8 cycles based on response, I also reviewed the potential side effects of the chemotherapy. Ms. Christianson's daughter expressed concern if her mother would be able to tolerate the chemo given her frail state. I stated that is a concern, as she will have to be physically strong enough. I suggested talking with Palliative Care, and she wants to talk with her brother and mother today to decide if she wants to move forward with treatment. Review of Systems ROS Limitations: Language Barrier Constitutional: COMPLAINS OF: Weight loss Gastrointestinal: COMPLAINS OF: Abdominal pain, Difficulty Swallowing, Anorexia Except as stated in HPI: all other systems reviewed are Neg Past Family Social History Allergies: Coded Allergies: No Known Allergies (Unverified , 03/11/18) Past Medical History ovarian cancer diabetes hypertension abnormal heart rhythm (?) Past Surgical History hysterectomy Reported Medications per EMR Active Ordered Medications Current Medications Iohexol (Omnipaque 350 Inj) 96 ml STK-MED ONCE IVCONTRAST Last administered on 04/04/18at 11:40; Start 04/04/18 at 11:40; Stop 04/04/18 at 11:41; Status DC Sodium Chloride (NS Flush) 2 ml UNSCH PRN IV FLUSH FLUSH AFTER USING IV ACCESS ; Start 04/04/18 at 13:30 Sodium Chloride (NS Flush) 2 ml BID IV FLUSH Last administered on 04/04/18at 20: 42; Start 04/04/18 at 21:00 Ondansetron HCl (Zofran Odt) 4 mg Q6H PRN SL NAUSEA OR VOMITING; Start at 13:30 Naloxone HCl (Narcan Inj) 0.4 mg UNSCH PRN IV PUSH SEE LABEL COMMENTS; Start at 13:30 Magnesium Hydroxide (Milk Of Magnesia Liq) 30 ml Q12H PRN PO Mild constipation ; Start 04/04/18 at 13:30 Sennosides (Senokot) 17.2 mg Q12H PRN PO Moderate constipation; Start 04/04/18 at 13:30 Bisacodyl (Dulcolax Supp) 10 mg DAILY PRN RECTAL SEVERE CONSITIPATION; Start at 13:30 Lactulose (Lactulose Liq) 30 ml DAILY PRN PO SEVERE CONSITIPATION; Start at 13:30 Dextrose (D50w (Vial) Inj) 50 ml UNSCH PRN IV PUSH HYPOGLYCEMIA-SEE COMMENTS; Start 04/04/18 at 13:45 Glucagon (Glucagon Inj) 1 mg UNSCH PRN OTHER HYPOGLYCEMIA-SEE COMMENTS; Start 04/04/18 at 13:45 Insulin Aspart (NovoLOG SUPPLEMENTAL SCALE) 1 ACHS SLIDING SCALE SQ Last administered on 04/04/18at 20:40; Start 04/04/18 at 17:00 Furosemide (Lasix) 20 mg DAILY PO ; Start 04/05/18 at 09:00 Potassium Chloride (KCl) 10 meq DAILY PO ; Start 04/05/18 at 09:00 Lidocaine HCl (Xylocaine-Mpf 1% Inj) 30 ml STK-MED ONCE .ROUTE ; Start 04/04/18 at 15:50; Stop 04/04/18 at 15:51; Status DC Family History no PMH cancer Social History living with daughter in states denies tobacco denies alcohol Physical Exam Vital Signs Vital Signs Date Time Temp Pulse Resp B/P (MAP) Pulse Ox O2 Delivery O2 Flow Rate FiO2 04/05/18 04:00 97.9 93 16 109/54 (72) 95 04/05/18 00:00 98.1 92 16 102/48 (66) 97 04/04/18 20:00 98.0 99 16 100/49 (66) 96 04/04/18 16:10 106 16 134/59 (84) 95 04/04/18 16:00 98.0 107 16 122/45 (70) 99 04/04/18 15:52 99.1 102 16 123/54 (77) 97 04/04/18 14:46 98.5 78 16 132/73 (92) 98 04/04/18 12:57 100 17 160/66 (97) 100 Room Air 04/04/18 09:52 18 04/04/18 09:02 97.8 108 20 166/71 (102) 97 Physical Exam GENERAL: frail and thin, in no apparent distress. SKIN: No rashes, ecchymoses or lesions. Cool and dry. HEAD: Atraumatic. Normocephalic. No temporal or scalp tenderness. EYES: Pupils equal round and reactive. Extraocular motions intact. No scleral icterus. NECK: Trachea midline. No JVD or lymphadenopathy. CARDIOVASCULAR: Regular rate and rhythm without murmurs, gallops, or rubs. RESPIRATORY: Clear to auscultation. Breath sounds equal bilaterally. No wheezes , rales, or rhonchi. GASTROINTESTINAL: Abdomen soft, non-tender, nondistended. No hepato-splenomegaly , or palpable masses. No guarding. MUSCULOSKELETAL: Extremities without clubbing, cyanosis, or edema. NEUROLOGICAL: Awake and alert. Laboratory Laboratory Tests Test 04/04/18 09:45 04/04/18 15:00 04/04/18 20:01 04/05/18 06:21 White Blood Count 6.3 5.9 Red Blood Count 4.48 3.85 Hemoglobin 12.3 10.5 Hematocrit 38.1 32.5 Mean Corpuscular Volume 85.0 84.5 Mean Corpuscular Hemoglobin 27.4 27.3 Mean Corpuscular Hemoglobin Concent 32.3 32.3 Red Cell Distribution Width 14.9 14.6 Platelet Count 489 382 Mean Platelet Volume 7.8 7.8 Neutrophils (%) (Auto) 72.2 63.3 Lymphocytes (%) (Auto) 18.2 21.3 Monocytes (%) (Auto) 8.1 13.3 Eosinophils (%) (Auto) 0.5 1.3 Basophils (%) (Auto) 1.0 0.8 Neutrophils # (Auto) 4.5 3.7 Lymphocytes # (Auto) 1.1 1.3 Monocytes # (Auto) 0.5 0.8 Eosinophils # (Auto) 0.0 0.1 Basophils # (Auto) 0.1 0.0 CBC Comment DIFF FINAL DIFF FINAL Differential Comment Prothrombin Time 9.8 Prothromb Time International Ratio 1.0 Activated Partial Thromboplast Time 25.0 Blood Urea Nitrogen 11 8 Creatinine 0.74 0.47 Random Glucose 166 94 Total Protein 8.4 Albumin 2.7 Calcium Level 9.1 7.8 Alkaline Phosphatase 155 Aspartate Amino Transf (AST/SGOT) 26 Alanine Aminotransferase (ALT/SGPT) 18 Total Bilirubin 0.4 Sodium Level 135 141 Potassium Level 3.5 3.2 Chloride Level 94 102 Carbon Dioxide Level 30.3 31.5 Anion Gap 11 8 Estimat Glomerular Filtration Rate 78 131 Lactate Dehydrogenase 317 Peritoneal Fluid WBC 1344 Peritoneal Fluid RBC 32152 Peritoneal Fluid Neutrophils 3 Peritoneal Fluid Lymphocytes 61 Peritoneal Fluid Monocytes 26 Peritoneal Fluid Histiocytes 5 Peritoneal Fluid Other Cells 5 Peritoneal Fluid Comment Peritoneal Fluid Total Protein 5.8 Peritoneal Fluid Albumin 2.1 Peritoneal Fluid LDH 1685 Peritoneal Fluid Glucose 73 CA 125 Antigen 105.5 Result Diagram: 04/05/1821 04/05/18620 Imaging Last Impressions Cyst Biopsy Asp-Paracentesis US 04/04/18 0000 Signed Impressions: CONCLUSION: Uncomplicated paracentesis with removal of 7.2 L of fluid. Chest X-Ray 04/04/18 Signed Impressions: CONCLUSION: There is a retrocardiac appearing opacity/mass that appears different than on t he a prior examination. EKG lead overlies this area partially obscuring this fi nding. A hiatal hernia could have this appearance but I cannot exclude a medias tinal or lung mass given the appearance. Suggest chest CT for further evaluatio n. Chest CT 04/04/18 0000 Signed Impressions: CONCLUSION: 1. There is a large hiatal hernia with fluid in the posterior mediastinum that has extended from the peritoneal cavity. The hiatal hernia and fluid presumabl y are related to the dilated esophagus containing fluid material. Suspect there is likely some degree of external compression on the distal esophagus near the GE junction from the hernia and fluid. 2. The lungs demonstrated architectural distortion in the right upper lobe wit h bronchiectasis. There is also mild bronchiectasis and nodularity in the right middle lobe. The appearance favors a chronic infectious or inflammatory proces s but consider attention to this at follow-up imaging. 3. There is mediastinal lymphadenopathy, highly suspicious for metastatic dise ase related to the patient's ovarian cancer. 4. Please refer to abdomen and pelvis CT report for description of the subdiap hragmatic findings. Abdomen/Pelvis CT 04/04/18 0000 Signed Impressions: CONCLUSION: 1. Massive ascitic fluid with apparent calcified peritoneal metastases along t he anterior and inferior pelvis. There are additional omental metastasis. 2. Evidence of a hiatal hernia with apparent food in the distal esophagus. The distal esophagus is surrounded by pockets of ascitic fluid and may be narrowed distally. Assessment and Plan Problem List: (1) Ovarian malignant neoplasm ICD Codes: C56.9 - Malignant neoplasm of unspecified ovary Status: Acute Plan: s/p paracentesis Patient's daughter is going to talk with Ms. Christianson and her family today if she wishes to consider treatment. Considering Palliative Care consult, possible Hospice d/t patient's frail nature, compromised performance status treatment with chemotherapy could be very debilitating compromising her qualify of life. Physician Attestation Discussed with Dr. Almaraz and he agrees with above findings. Problem Qualifiers (1) Ovarian malignant neoplasm: Qualified Codes: C56.9 - Malignant neoplasm of unspecified ovary Artis Vee Apr 05, 2018 09:10
[2018-04-05] MEDS: SODIUM CHLORIDE 0.9% FLUSH 10 ML FLUSH IV FLUSH SCH ×2 (09:20→21:00)
[2018-04-05] MEDS: FUROSEMIDE 20 MG TAB PO SCH (09:20)
[2018-04-05] MEDS: POTASSIUM CHLORIDE 10 MEQ CONTROLLED RELEASE TAB PO SCH (09:20)
--- NOTE | 2018-04-05 10:23 | HHI.PR ---
Subjective Remarks Patient says she is feeling all right. Denies any chest pain or shortness of breath. Denies nausea or vomiting. Tolerating food. Discussed with daughter over the phone. Daughter says she spoke with oncology, and will discuss with patient whether to pursue ongoing chemotherapy. Objective Vital Signs Date Time Temp Pulse Resp B/P (MAP) Pulse Ox O2 Delivery O2 Flow Rate FiO2 04/05/18 08:00 98.1 93 15 116/58 (77) 93 04/05/18 04:00 97.9 93 16 109/54 (72) 95 04/05/18 00:00 98.1 92 16 102/48 (66) 97 04/04/18 20:00 98.0 99 16 100/49 (66) 96 04/04/18 16:10 106 16 134/59 (84) 95 04/04/18 16:00 98.0 107 16 122/45 (70) 99 04/04/18 15:52 99.1 102 16 123/54 (77) 97 04/04/18 14:46 98.5 78 16 132/73 (92) 98 04/04/18 12:57 100 17 160/66 (97) 100 Room Air I/O 04/04/18 04/04/18 04/04/18 04/05/18 04/05/18 04/05/18 07:00 15:00 23:00 07:00 15:00 23:00 Intake Total 240 ml 240 ml Output Total 200 ml Balance 240 ml 240 ml -200 ml Intake Oral 240 ml 240 ml Output Urine Total 200 ml # Voids 2 1 # Bowel Movements 0 Result Diagram: 04/05/1821 04/05/1821 Objective Remarks GENERAL: Patient sitting up in bed. Appears comfortable. She is eating breakfast. SKIN: Warm and dry. HEAD: Normocephalic. EYES: No scleral icterus. No injection or drainage. NECK: Supple, trachea midline. No JVD. CARDIOVASCULAR: Regular rate and rhythm without murmurs, gallops, or rubs. RESPIRATORY: Breath sounds equal bilaterally. No accessory muscle use. GASTROINTESTINAL: Abdomen soft, non-tender, nondistended. Positive bowel sounds. MUSCULOSKELETAL: No cyanosis, or edema. BACK: Nontender without obvious deformity. No CVA tenderness. A/P Assessment and Plan //Ovarian malignant neoplasm ICD Code: C56.9 - Malignant neoplasm of unspecified ovary Status: Acute Plan: The patient was previously living in the [facility] where she received chemotherapy treatment about 4 years ago. However she has been having recurrent ascites. This has been getting worse. Abdominal CT shows massive ascitic fluid with apparent calcified peritoneal metastases along the anterior and inferior pelvis. There are additional omental metastasis. There is also mediastinal lymphadenopathy concerning for metastasis. -Order paracentesis. Will also ask for cytology. -Consult [facility] REPRESENT[facility] oncology. Appreciate assistance. -Pain control as needed. -I asked the patient's daughter who is an employee here to bring the patient's records from the [facility] = Daughter and patient to discuss whether she wants to go through ongoing chemotherapy //Ascites, malignant ICD Code: R18.0 - Malignant ascites Status: Acute Plan: Paracentesis as above. Fluid studies and cytology ordered. =Paracentesis looks like some blood/malignant ascites. Only 3% PMNs no signs of infection. Abdomen nontender. // Acute obstruction of esophagus ICD Code: K22.2 - Esophageal obstruction Status: Acute Plan: Probably due to large volume ascites. We will see how she does after paracentesis. If she continues to have issues with eating, will get GI to evaluate. = Appears to be eating with no difficulty. //Hypokalemia. 3.2. Replace and monitor. // Diabetes ICD Code: E11.9 - Type 2 diabetes mellitus without complications Plan: Sliding scale insulin with Accu-Cheks. Oral intake is uncertain at this time. Hold glipizide. Glucose appears controlled. //Hypertension ICD Code: I10 - Essential (primary) hypertension Plan: Continue Lasix for now. Follow blood pressure. = Blood pressure acceptable. Continue to monitor. Discharge Planning Pending oncology clearance. No insurance. Flaco Alarcon MD Apr 05, 2018 10:23
[2018-04-05] MEDS ORDERED: DOCUSATE SODIUM 50 MG/SENNA 8.6 MG TAB PO ONE (10:30)
[2018-04-05] MEDS ORDERED: POTASSIUM CHLORIDE 25 MEQ EFFERVESCENT TAB PO ONE (10:30)
--- NOTE | 2018-04-05 18:57 | MB ---
cc: Alyssa Almaraz MD,Hung Alarcon,Flaco Kessler MD DATE: 04/05/2018 PHYSICIAN REQUESTING CONSULTATION: Dr. Hung Katz. REASON FOR CONSULTATION: History of ovarian cancer. REASON FOR ADMISSION: Symptomatic ascites. HISTORY OF PRESENT ILLNESS: She is seen in consultation. She is evaluated by me, counseled by me and examined by me in conjunction with our nurse practitioner (Artis Vee). I agree with her findings, assessment and plan of care. This is a 67-year-old female who reports in 2012 she underwent surgery for a diagnosis of ovarian cancer ,after which she was treated with chemotherapy. This surgery and treatment were done in the [facility]. We have no records, nor does she recall with certainty the medication she received, although in discussion, taxol and carboplatin seemed familiar and she believes those were the drugs of treatment. Nevertheless, she has done well during this 4-5 year period until recently where she has had abdominal distention, discomfort, pain and pressure. Apparently, she had an outpatient paracentesis recently, where she reports approximately 6 liters of fluid were removed and upon admission now, she had 7.2 liters of ascites removed. Imaging confirmed extensive ascites, omental thickening, peritoneal carcinomatosis implants and mediastinal adenopathy that was also suspicious. There are some chronic inflammatory or scar-like changes in the lungs. Uncertain if these are related to malignancy. We have no confirmation of her diagnosis other than her report, but the fluid that was recently removed has been sent for cytology, the results of which are pending. She is admitted now and seen now in consultation for further evaluation and recommendations regarding these findings. CA-125 is only modestly elevated at 105. Other labs show BUN and creatinine to be 8 and 0.47. H and H 10.5 and 32, white count 5.9. Her ins and outs, voiding without difficulty. Labs are reported. PAST MEDICAL HISTORY: Ovarian cancer, diabetes, and hypertension. PAST SURGICAL HISTORY: Hysterectomy and oophorectomy for ovarian cancer. MEDICATIONS: As outlined in the chart. ALLERGIES: NO KNOWN MEDICATION ALLERGIES. FAMILY HISTORY: Noncontributory. No known family history of cancer. SOCIAL HISTORY: Denies tobacco use. REVIEW OF SYSTEMS: As per history of present illness, associated with some fatigue, decreased appetite and subjective weight loss. PHYSICAL EXAMINATION: VITAL SIGNS: She is afebrile, pulse 92, respirations 17, blood pressure 113/56, O2 saturations greater than or equal to 92% while asleep, 97% while awake. GENERAL: She is alert, oriented. Setswana is not her primary language and our communication is facilitated by her daughter who joins us via speaker phone. Her daughter reportedly works here at [facility]. She is somewhat cachectic in appearance with some central and peripheral wasting. HEENT: Mucous membranes are dry. SKIN: Warm and dry. NECK: No overt supraclavicular or cervical adenopathy. ABDOMEN: Soft. There is no detectable ascites or tense changes to the abdomen. There is some fullness in the epigastrium. It is nontender. No rebound or guarding. BACK: Nontender. LUNGS: With rales at the bases, otherwise clear. CARDIOVASCULAR: Regular rate and rhythm. EXTREMITIES: Some muscular atrophic changes. No palpable cords. NEUROVASCULAR: Intact. In discussion, accompanied by her daughter, I explained the reason for fuse maker/oncology consultation and based on her history, it would suggest that the findings presently are consistent with recurrent ovarian cancer. I recommended chemotherapy and explained why that is recommended, as well as why surgery is not recommended. It is uncertain to what extent she could tolerate multi-agent chemotherapy as her performance status is somewhat diminished, but certainly a combination of Taxol and carboplatin with initial dose reduction and Neulasta stem cell support could be considered. Conversely, single agent chemotherapy such as single-agent carboplatin would be reasonable. Given the long interval between initial treatment and recurrence, taxane and/or holy cross would be favored. Other potential options would include such treatment as gemcitabine, liposomal doxorubicin, topotecan with or without a biologic agent such as Avastin, other possibilities are considered, the reason why radiation treatment is not recommended is also considered. Based on our questions and discussion earlier with our financial advisors, Ronda Christianson is a resident of the [facility], but has been in the [facility] for a number of weeks and she is staying with her daughter in [facility]. She would be able to get approval for treatment directed by one of her medical oncologists in [facility] at the [facility], [place], but it would be difficult to get approval for treatment at [facility] and this is explained to her and her daughter as well. We discussed why a venous access port may be helpful, and they agree that it would be helpful to try to get this placed tomorrow. Her daughter and herself are hoping to be discharged tomorrow and if the port cannot be placed, there is no reason to hold up her discharge as this could be done as an outpatient as can Medical Oncology consult and treatment be done in [facility] as an outpatient. More questions were asked and answered. They expressed good understanding and agreed. ASSESSMENT: 1. By history, ovarian cancer treated with surgery and chemotherapy in the [facility] in 2012. 2. No evidence of recurrent disease until recently with symptomatic reaccumulation of ascites as described above. 3. Status post recent 7.2 liter paracentesis with cytology pending. 4. Extensive discussion PLAN: 1. N.p.o. after midnight. 2. Consult Interventional Radiology for venous access port placement tomorrow if possible. 3. No need to hold hospital discharge thereafter if primary medical team feels she is ready for discharge to home. 4. She will need followup with Hematology/Oncology in [place] to oversee her chemotherapy and followup in that facility up. MD NO Selby/MARIANGEL , 05:53 PM , 06:55 PM
[2018-04-06] VITALS (7 sets, daily range): BP systolic 106–127; BP diastolic 52–61; PULSE 87–102; RESP 16–18; TEMP 97.9–98.5; O2SAT 92–95
[2018-04-06] MEDS: INSULIN ASPART SUPPLEMENTAL SCALE SQ SCH ×3 (08:00→17:00)
[2018-04-06] MEDS ORDERED: ceFAZolin 2 GM PREMIX 50 ML IV SCH (08:45)
[2018-04-06] MEDS: POTASSIUM CHLORIDE 10 MEQ CONTROLLED RELEASE TAB PO SCH (09:23)
[2018-04-06] MEDS: SODIUM CHLORIDE 0.9% FLUSH 10 ML FLUSH IV FLUSH SCH (09:24)
[2018-04-06] MEDS: FUROSEMIDE 20 MG TAB PO SCH ×2 (09:24→17:15)
[2018-04-06] MEDS ORDERED: FURO20TA PO (09:39)
[2018-04-06] MEDS ORDERED: SPIR25TA PO (09:39)
--- NOTE | 2018-04-06 09:42 | HHI.PR ---
Subjective Remarks Patient says she is feeling well. Had bowel movement this morning. Denies any chest pain shortness of breath. Denies nausea or vomiting. Feels like going home. Objective Vital Signs Date Time Temp Pulse Resp B/P (MAP) Pulse Ox O2 Delivery O2 Flow Rate FiO2 04/06/18 08:00 97.9 89 18 127/61 (83) 95 04/06/18 04:00 98.1 88 16 106/52 (70) 94 04/06/18 00:00 98.5 91 18 109/55 (73) 94 04/05/18 20:00 99.4 99 18 124/59 (80) 95 04/05/18 16:03 94 04/05/18 16:00 97.9 98 16 131/58 (82) 96 04/05/18 12:00 97.3 92 17 113/56 (75) 92 I/O 04/05/18 04/05/18 04/05/18 04/06/18 04/06/18 04/06/18 06:59 14:59 22:59 06:59 14:59 22:59 Intake Total 240 ml 1080 ml 0 ml Output Total 200 ml 172 ml 325 ml Balance 240 ml -200 ml 908 ml -325 ml Intake Oral 240 ml 1080 ml 0 ml Output Urine Total 200 ml 172 ml 325 ml # Voids 2 1 # Bowel Movements 0 0 0 Result Diagram: 04/05/1862004/05/18620 Objective Remarks GENERAL: Patient sitting up in bed. Appears comfortable. SKIN: Warm and dry. HEAD: Normocephalic. EYES: No scleral icterus. No injection or drainage. NECK: Supple, trachea midline. No JVD. CARDIOVASCULAR: Regular rate and rhythm without murmurs, gallops, or rubs. RESPIRATORY: Breath sounds equal bilaterally. No accessory muscle use. GASTROINTESTINAL: Abdomen soft, non-tender, nondistended. Positive bowel sounds. MUSCULOSKELETAL: No cyanosis, or edema. BACK: Nontender without obvious deformity. No CVA tenderness. A/P Assessment and Plan //Ovarian malignant neoplasm ICD Code: C56.9 - Malignant neoplasm of unspecified ovary Status: Acute Plan: The patient was previously living in the [facility] where she received chemotherapy treatment about 4 years ago. However she has been having recurrent ascites. This has been getting worse. Abdominal CT shows massive ascitic fluid with apparent calcified peritoneal metastases along the anterior and inferior pelvis. There are additional omental metastasis. There is also mediastinal lymphadenopathy concerning for metastasis. -Order paracentesis. Will also ask for cytology. -Consult [facility] oncology. Appreciate assistance. -Pain control as needed. -I asked the patient's daughter who is an employee here to bring the patient's records from the [facility] = Patient will follow up with oncology in [facility] for chemotherapy. Placed on Lasix, spironolactone for prevention of ascites. //Ascites, malignant ICD Code: R18.0 - Malignant ascites Status: Acute Plan: Paracentesis as above. Fluid studies and cytology ordered. =Paracentesis looks like some blood/malignant ascites. Only 3% PMNs no signs of infection. Abdomen nontender. // Acute obstruction of esophagus ICD Code: K22.2 - Esophageal obstruction Status: Acute Plan: Probably due to large volume ascites. We will see how she does after paracentesis. If she continues to have issues with eating, will get GI to evaluate. = Appears to be eating with no difficulty. I discussed with patient that this may be an issue in the future. //Hypokalemia. 3.2. Replace and monitor. = A.m. labs pending. // Diabetes ICD Code: E11.9 - Type 2 diabetes mellitus without complications Plan: Sliding scale insulin with Accu-Cheks. Oral intake is uncertain at this time. Hold glipizide. Glucose appears controlled. = Continue home medications at discharge. //Hypertension ICD Code: I10 - Essential (primary) hypertension Plan: Continue Lasix for now. Follow blood pressure. = Blood pressure acceptable. Continue to monitor. Discharge Planning Discharge home to follow-up with oncology in [facility]. Flaco Alarcon MD Apr 06, 2018 09:41
[2018-04-06] MEDS ORDERED: POTA10CA PO (09:43)
--- NOTE | 2018-04-06 09:48 | HHI.DS ---
Discharge Summary Admission Date Apr 04, 2018 at 13:24 Discharge Date: Apr 06, 2018 Admitting Diagnosis malignant ascites, esophageal obstruction,ovarian cancer (1) Ovarian malignant neoplasm ICD Code: C56.9 - Malignant neoplasm of unspecified ovary Status: Acute (2) Ascites, malignant ICD Code: R18.0 - Malignant ascites Status: Acute (3) Acute obstruction of esophagus ICD Code: K22.2 - Esophageal obstruction Status: Acute (4) Diabetes ICD Code: E11.9 - Type 2 diabetes mellitus without complications (5) Hypertension ICD Code: I10 - Essential (primary) hypertension Procedures Paracentesis. Please see report. Port placement. Please see report. Brief History - From Admission 67-year-old female with a reported history of ovarian cancer who has previously been living in the [facility] presented to the emergency room with recurrent abdominal pain and ascites. The patient was seen with her daughter at bedside who served as an braille operator per the patient's request. Apparently she was diagnosed with ovarian cancer about 4 years ago in the [facility]. She underwent total hysterectomy and received 6 doses of chemotherapy treatment. However she continues to have recurrent ascites requiring frequent paracentesis. She is here visiting her family but she continues to decline with persistent ascites, very poor appetite and overall decline. She was seen here in the emergency room about 3 weeks ago and underwent therapeutic paracentesis. The fluid reaccumulated again with associated abdominal pain. She has not been able to establish with an oncologist here. CBC/BMP: 04/05/18 0621 04/05/18 0621 Significant Findings Laboratory Tests Test 04/04/18 09:45 04/04/18 15:00 04/04/18 20:01 04/05/18 06:21 Platelet Count 489 TH/MM3 (150-450) Neutrophils (%) (Auto) 72.2 % (16.0-70.0) Monocytes (%) (Auto) 8.1 % (0.0-8.0) 13.3 % (0.0-8.0) Random Glucose 166 MG/DL (74-106) Total Protein 8.4 GM/DL (6.4-8.2) Albumin 2.7 GM/DL (3.4-5.0) Alkaline Phosphatase 155 U/L (45-117) Sodium Level 135 MEQ/L (136-145) Chloride Level 94 MEQ/L (98-107) Estimat Glomerular Filtration Rate 78 ML/MIN (>89) Lactate Dehydrogenase 317 U/L (84-246) Peritoneal Fluid WBC 1344 /MM3 (0-10) Peritoneal Fluid RBC 98505 /MM3 (0-0) CA 125 Antigen 105.5 U/ML (0.0-30.2) Red Blood Count 3.85 MIL/MM3 (4.00-5.30) Hemoglobin 10.5 GM/DL (11.6-15.3) Hematocrit 32.5 % (35.0-46.0) Creatinine 0.47 MG/DL (0.50-1.00) Calcium Level 7.8 MG/DL (8.5-10.1) Potassium Level 3.2 MEQ/L (3.5-5.1) Imaging Last Impressions Cyst Biopsy Asp-Paracentesis US 04/04/18 Signed Impressions: CONCLUSION: Uncomplicated paracentesis with removal of 7.2 L of fluid. Chest X-Ray 04/04/18 Signed Impressions: CONCLUSION: There is a retrocardiac appearing opacity/mass that appears different than on t he a prior examination. EKG lead overlies this area partially obscuring this fi nding. A hiatal hernia could have this appearance but I cannot exclude a medias tinal or lung mass given the appearance. Suggest chest CT for further evaluatio n. Chest CT 04/04/18 Signed Impressions: CONCLUSION: 1. There is a large hiatal hernia with fluid in the posterior mediastinum that has extended from the peritoneal cavity. The hiatal hernia and fluid presumabl y are related to the dilated esophagus containing fluid material. Suspect there is likely some degree of external compression on the distal esophagus near the GE junction from the hernia and fluid. 2. The lungs demonstrated architectural distortion in the right upper lobe wit h bronchiectasis. There is also mild bronchiectasis and nodularity in the right middle lobe. The appearance favors a chronic infectious or inflammatory proces s but consider attention to this at follow-up imaging. 3. There is mediastinal lymphadenopathy, highly suspicious for metastatic dise ase related to the patient's ovarian cancer. 4. Please refer to abdomen and pelvis CT report for description of the subdiap hragmatic findings. Abdomen/Pelvis CT 04/04/18 0000 Signed Impressions: CONCLUSION: 1. Massive ascitic fluid with apparent calcified peritoneal metastases along t he anterior and inferior pelvis. There are additional omental metastasis. 2. Evidence of a hiatal hernia with apparent food in the distal esophagus. The distal esophagus is surrounded by pockets of ascitic fluid and may be narrowed distally. Hospital Course Patient underwent imaging above with extensive abdominal ascites extending into mediastinum, which appears to be causing some esophageal obstruction. Patient underwent paracentesis with marketed improvement. Denies any difficulty swallowing, and appetite has improved. Oncology was consulted, and patient is to undergo port placement. She will need to follow-up with oncology as outpatient. Please see imaging above with abnormalities on chest CT. Will need follow-up imaging as outpatient. For ascites, patient will be started on Lasix 20 mg daily, as well as spironolactone 12.5 mg daily. Potassium low, 3.2 during admission, improved to 3.7 with replacement. Will need follow-up labs with oncology. For problem based summary from most recent progress note, please see below. //Ovarian malignant neoplasm ICD Code: C56.9 - Malignant neoplasm of unspecified ovary Status: Acute Plan: The patient was previously living in the [facility] where she received chemotherapy treatment about 4 years ago. However she has been having recurrent ascites. This has been getting worse. Abdominal CT shows massive ascitic fluid with apparent calcified peritoneal metastases along the anterior and inferior pelvis. There are additional omental metastasis. There is also mediastinal lymphadenopathy concerning for metastasis. -Order paracentesis. Will also ask for cytology. -Consult [facility] oncology. Appreciate assistance. -Pain control as needed. -I asked the patient's daughter who is an employee here to bring the patient's records from the [facility] = Patient will follow up with oncology in [facility] for chemotherapy. Placed on Lasix, spironolactone for prevention of ascites. //Ascites, malignant ICD Code: R18.0 - Malignant ascites Status: Acute Plan: Paracentesis as above. Fluid studies and cytology ordered. =Paracentesis looks like some blood/malignant ascites. Only 3% PMNs no signs of infection. Abdomen nontender. // Acute obstruction of esophagus ICD Code: K22.2 - Esophageal obstruction Status: Acute Plan: Probably due to large volume ascites. We will see how she does after paracentesis. If she continues to have issues with eating, will get GI to evaluate. = Appears to be eating with no difficulty. I discussed with patient that this may be an issue in the future. //Hypokalemia. 3.2. Replace and monitor. = A.m. labs pending. // Diabetes ICD Code: E11.9 - Type 2 diabetes mellitus without complications Plan: Sliding scale insulin with Accu-Cheks. Oral intake is uncertain at this time. Hold glipizide. Glucose appears controlled. = Continue home medications at discharge. //Hypertension ICD Code: I10 - Essential (primary) hypertension Plan: Continue Lasix for now. Follow blood pressure. = Blood pressure acceptable. Continue to monitor. Discharge Planning Discharge home to follow-up with oncology in [facility]. Pt Condition on Discharge: Good Discharge Disposition: Discharge Home Discharge Time: > 30 minutes Discharge Instructions DIET: Follow Instructions for: Diabetic Diet Activities you can perform: Regular-No Restrictions Follow up Referrals: Oncology/Hematology - 1 Week @ [place] with heme/onc New Medications: Potassium Chloride ER (Potassium Chloride ER) 10 Meq Cap 10 MEQ PO DAILY for Electrolyte Replacement, #30 CAP 0 Refills Spironolactone (Spironolactone) 25 Mg Tab 12.5 MG PO DAILY for remove fluid, #15 TAB 0 Refills Furosemide (Furosemide) 20 Mg Tab 20 MG PO DAILY for remove fluid for 30 Days, #30 TAB Continued Medications: Glipizide (Glipizide) 10 Mg Tab 10 MG PO BIDAC for Blood Sugar Management, #60 TAB 0 Refills Take 30 minutes before a meal Multiple Vitamin (Multi Vitamin Daily) 1 Tab Tab Discontinued Medications: Furosemide (Furosemide) 20 Mg Tab 20 MG PO TuFr, #60 TAB 0 Refills [trimetazidine] () 35 MG PO BID for Angina Flaco Alarcon MD Apr 06, 2018 09:47
[2018-04-06 10:34] LABS: AUTOMATED NEUTROPHIL # 3.9 TH/MM3 (1.8-7.7); BASOPHIL # 0.1 TH/MM3 (0-0.2); EOSINOPHIL # 0.1 TH/MM3 (0-0.4); EOSINOPHIL % 1.4 % (0.0-4.0); HEMATOCRIT 37.3 % (35.0-46.0); HEMOGLOBIN 12.1 GM/DL (11.6-15.3); LYMPH % 23.9 % (9.0-44.0); LYMPHOCYTE # 1.5 TH/MM3 (1.0-4.8); MEAN CELL VOLUME 84.5 FL (80.0-100.0); MEAN CORPUSCULAR HEMOGLOBIN 27.4 PG (27.0-34.0); MEAN CORPUSCULAR HGB CONC 32.4 % (32.0-36.0); MEAN PLATELET VOLUME 8.2 FL (7.0-11.0); MONO % 11.8 % (0.0-8.0); MONOCYTE # 0.7 TH/MM3 (0-0.9); NEUT % 61.9 % (16.0-70.0); PLATELET COUNT 394 TH/MM3 (150-450); RED BLOOD COUNT 4.41 MIL/MM3 (4.00-5.30); RED CELL DISTRIBUTION WIDTH 14.8 % (11.6-17.2); WHITE BLOOD COUNT 6.3 TH/MM3 (4.0-11.0)
[2018-04-06 10:45] LABS: ALBUMIN 1.7 GM/DL (3.4-5.0); BICARBONATE 29.8 MEQ/L (21.0-32.0); CALCIUM 7.9 MG/DL (8.5-10.1); CREATININE 0.54 MG/DL (0.50-1.00); MAGNESIUM 2.1 MG/DL (1.5-2.5); PHOSPHORUS 3.4 MG/DL (2.5-4.9)
[2018-04-06] MEDS ORDERED: OMEP20TA93 PO (11:11)
[2018-04-06] MEDS: VANCOMYCIN INJ 1,000 MG in SODIUM CHLOR 0.9% 250 ML INJ 250 ML IV SCH ×2 (13:54→15:22)
[2018-04-06] MEDS ORDERED: LIDOCAINE 1%/EPINEPHrine 1:100,000 SOLN 20 ML VIAL ONE (14:54)
[2018-04-06] MEDS ORDERED: MIDAZOLAM HCL 2 MG/2 ML VIAL ONE (14:57)
--- NOTE | 2018-04-06 15:57 | PD.RAD ---
Post Procedure Progress Note Pre Procedure Diagnosis: (1) Ovarian malignant neoplasm Post Procedure Diagnosis: (1) Ovarian malignant neoplasm Procedure Date: Apr 06, 2018 Supervising Radiologist: Heri Reyes Estimated blood loss: 3cc Anesthesia: Local, Conscious Sedation Plan of Activity Patient to Unit: [facility]OPU Patient Condition: Good Additional Comments: Pt. post right subclavian port placement. catheter in good position OK for use See PACS Report for procedural detail/treatment Heri Reyes MD Apr 06, 2018 15:57
[2018-04-06] MEDS ORDERED: SODIUM CHLORIDE 0.9% FLUSH 10 ML FLUSH IVF PRN (16:00)
--- NOTE | 2018-04-06 18:38 | RADRPT ---
EXAM DATE: 04/06/2018 3:55 PM EDT AGE/SEX: 67 years / Female INDICATIONS: Patient with ovarian cancer. Needs infusaport for chemotherapy. CLINICAL DATA: This is the patient's initial encounter. Patient reports that signs and symptoms have been present for > 1 year and indicates a pain score of 0/10. MEDICAL/SURGICAL HISTORY: Diabetes. Hypertension. ovarian cancer, esophageal obstruction, zelalem gnant ascites Hysterectomy. COMPARISON: No prior exams available for comparison. FLUORO TIME (min): 0.47 IMAGE SERIES: SEDATION TIME (min): 35 MEDICATION(S): 1 mg midazolam (Versed) IV 50 mcg fentanyl (Sublimaze) IV Vancomycin within 2 hrs of procedure, Ancef (or alternative) within 1 hr of procedure. DEVICE(S): Right 8 fr xcela plus port . . PROCEDURE : 1. Continuous pulse oximetry and EKG monitoring. 2. Intravenous conscious sedation. 3. Ultrasound guidance for venous access. 4. Fluoroscopic guided implantable central venous port placement. The patient was placed supine. The neck was prepped in sterile fashion. Full sterile technique was u sed, including cap, mask, sterile gloves and gown, and a large sterile sheet. Hand hygiene and 2% ch lorhexidine Betadine was utilized per protocol for cutaneous antisepsis with appropriate dry time for site. Sterile gel and sterile probe cover were utilized for ultrasound guidance. The skin and sub cutaneous tissues were infiltrated with local anesthetic solution. Under direct ultrasound guidance, the right subclavian vein was accessed. The ultrasound images depi cting access guidance were stored and saved to PACS for permanent record. A subcutaneous pocket was created using blunt dissection. The port was introduced to the pocket. The catheter tubing was fed through a subcutaneous tunnel to the venotomy site. The catheter tubing was cut to a suitable length and then was introduced through a valved Peel-Away sheath and positioned with catheter tubing tip at the cavo-atrial junction level. The pocket incision was closed with subcuticular Vicryl suture. St rio-Strips were applied. The port was flushed and locked with heparin solution per protocol. Steril e dressing was applied to the site. The patient tolerated the procedure well. Conscious sedation was performed with the prescribed dosages and duration as above in the presence of an independent trained radiology nurse to assist in the monitoring of the patient. EKG and oximetry remained stable throughout the procedure. The patient tolerated the procedure well and there were no complications. The patient was sent to post anesthesia recovery in stable condition. CONCLUSION: 1. Uncomplicated ultrasound and fluoroscopic guided implanted central venous port catheter placement as described in detail above. An 8 [place] [employer] port was placed. Electronically signed by: Heri Reyes MD 04/06/2018 6:37 PM EDT
== END 2018-04-06 17:59 | disposition home or self-care (01) | DRG 755 ==
LOC: NEPC 08:53 → NEDA 13:24 → N07B 16:23
PROVIDERS: ADMIT Internal Medicine; ATTEND Internal Medicine
PROC: 0W9G3ZZ Drainage of Peritoneal Cavity, Percutaneous Approach (ICD-10-PCS; principal; 2018-04-04)
PROC: 02HV33Z Insertion of Infusion Device into Superior Vena Cava, Percutaneous Approach (ICD-10-PCS; 2018-04-06)
PROC: 0JH60XZ Insertion of Tunneled Vascular Access Device into Chest Subcutaneous Tissue and Fascia, Open Approach (ICD-10-PCS; 2018-04-06)
DX: C56.9 Malignant neoplasm of unspecified ovary (principal); R18.0 Malignant ascites; C79.89 Secondary malignant neoplasm of other specified sites; K22.2 Esophageal obstruction; C78.6 Secondary malignant neoplasm of retroperitoneum and peritoneum; R54 Age-related physical debility; E11.9 Type 2 diabetes mellitus without complications; R63.4 Abnormal weight loss; I10 Essential (primary) hypertension; E87.6 Hypokalemia; J47.9 Bronchiectasis, uncomplicated; K44.9 Diaphragmatic hernia without obstruction or gangrene; K22.8 Other specified diseases of esophagus; R14.0 Abdominal distension (gaseous); R59.0 Localized enlarged lymph nodes; Z85.43 Personal history of malignant neoplasm of ovary; Z90.710 Acquired absence of both cervix and uterus; Z92.21 Personal history of antineoplastic chemotherapy; Z79.84 Long term (current) use of oral hypoglycemic drugs; Z68.20 Body mass index [BMI] 20.0-20.9, adult
CPT/HCPCS: 49083; 71045; 71260; 74177; 80048; 80053; 80069; 82042; 82945; 82948; 83615; 83735; 84155; 84157; 85025; 85610; 85730; 86304; 88112; 88305; 89051; 93005; C1729; J0690; J1642; J1815; J2250; J3010; J3370; J7050; Q9967